=== PATIENT | male | born 1980 | race African-American/Black ===

== ENCOUNTER 2017-09-01 15:50 | Inpatient (IN) | payer OTHER ==
[2017-09-01] MEDS: IV NORMAL SALINE 1000ML BAG 1,000 ML IV ×6 (16:08→17:47)
[2017-09-01 16:22] LABS: ADD MAN DIFF? NO
[2017-09-01 16:24] LABS: BASO # 0.1 x10^3/uL (0.0-0.2); BASO % 1 % (0-3); EOS % 0 % (0-3); HEMATOCRIT 43.8 % (39.0-53.0); LYMPH # 0.7 x10^3/uL (1.0-4.8); LYMPH % 7 % (24-48); MEAN CORPUSCULAR HEMOGLOBIN 29 pg (25-35); MEAN CORPUSCULAR HGB CONC 32 g/dL (31-37); MEAN CORPUSCULAR VOLUME 92 fL (79-100); MONO # 1.2 x10^3/uL (0.0-1.1); MONO % 12 % (0-9); NEUT # 7.8 x10^3uL (1.8-7.7); NEUT % 80 % (31-73); PLATELET COUNT 257 x10^3/uL (140-400); RED BLOOD COUNT 4.77 x10^6/uL (4.30-5.70); RED CELL DISTRIBUTION WIDTH 13.3 % (11.5-14.5); WHITE BLOOD COUNT 9.8 x10^3/uL (4.0-11.0)
[2017-09-01] MEDS: 0.9 % SODIUM CHLORIDE 10 ML DISP.SYRIN. IV ×2 (16:33)
[2017-09-01 16:36] LABS: BILIRUBIN,URINE NEGATIVE (NEG); CLARITY,URINE CLEAR; COLOR,URINE YELLOW; GLUCOSE,URINE >=1000 mg/dL (NEG); NITRITE,URINE NEGATIVE (NEG); PROTEIN,URINE NEGATIVE (NEG-TRACE); UROBILINOGEN,URINE 0.2 mg/dL (0.2 mg/dL)
[2017-09-01 16:37] LABS: BACTERIA,URINE 0 /HPF (0-FEW); RBC,URINE 0 /HPF (0-2); WBC,URINE OCC /HPF (0-4)
[2017-09-01 16:47] LABS: ALBUMIN 3.2 g/dL (3.4-5.0); ALK PHOS 78 U/L (46-116); ALT (SGPT) 44 U/L (16-63); ANION GAP 20 (6-14); AST (SGOT) 11 U/L (15-37); BLOOD UREA NITROGEN 90 mg/dL (8-26); CALCIUM 8.5 mg/dL (8.5-10.1); CARBON DIOXIDE 18 mmol/L (21-32); CHLORIDE 76 mmol/L (98-107); CREATININE 6.3 mg/dL (0.7-1.3); DIRECT BILIRUBIN 0.3 mg/dL (0.0-0.2); GFR 12.2; LIPASE 595 U/L (73-393); MAGNESIUM 3.1 mg/dL (1.8-2.4); TOTAL BILIRUBIN 0.9 mg/dL (0.2-1.0); TOTAL PROTEIN 6.5 g/dL (6.4-8.2)
[2017-09-01 16:49] LABS: TROPONINI < 0.017 ng/mL (0.000-0.055)
[2017-09-01 16:49] LABS: GLUCOSE 1291 mg/dL (70-99); POTASSIUM 7.9 mmol/L (3.5-5.1); SODIUM 114 mmol/L (136-145)
[2017-09-01 16:54] LABS: CKMB INDEX 0.5 % (0-4); CKMB MASS 1.7 ng/mL (0.0-3.6); CREATINE KINASE 327 U/L (39-308)
[2017-09-01 16:54] LABS: NT-PRO BNP 38 pg/mL (0-124)
[2017-09-01 16:58] LABS: THYROID STIM HORMONE (TSH) 0.705 uIU/mL (0.358-3.74)
[2017-09-01] MEDS ORDERED: HYDROcodone/APAP 5/325MG 1 TAB TABLET PO ×2 (17:00)
[2017-09-01] MEDS ORDERED: ONDANSETRON PF 4 MG/2 ML VIAL. IV ×4 (17:00)
[2017-09-01] MEDS ORDERED: diphenhydrAMINE HCL 25 MG CAPSULE PO ×2 (17:00)
[2017-09-01] MEDS ORDERED: CALCIUM GLUCONATE 100 MG/ML VIAL for DOSE IN MG. IV (17:00)
[2017-09-01] MEDS ORDERED: MORPHINE SULFATE 2 MG/ML DISP.SYRIN. IV ×2 (17:00)
[2017-09-01 17:09] LABS: ACETONE SM POS (NEG)
[2017-09-01] MEDS: SODIUM BICARB ADULT 8.4% 50 MEQ/50 ML DISP.SYRIN. IV ×2 (17:11)
[2017-09-01] MEDS: SODIUM POLYSTYRENE SULFONATE 15 GM/60 ML ORAL.SUSP. PO ×2 (17:15)
[2017-09-01] MEDS: INSULIN,REGULAR 150 UNIT DRIP 150 ML IV ×2 (17:15)
[2017-09-01] MEDS: CALCIUM GLUCONATE 1,000 MG/10 ML VIAL. IV ×2 (17:17)
[2017-09-01 18:03] LABS: LACTIC ACID 4.4 mmol/L (0.4-2.0)
[2017-09-01] MEDS ORDERED: IV NORMAL SALINE 1000ML BAG 1,000 ML IV ×4 (19:00)
[2017-09-01] MEDS ORDERED: IV DEXTROSE 5 %-0.45 % NACL 1,000 ML IV ×2 (19:00)
[2017-09-01 19:15] LABS: ANION GAP 16 (6-14); BLOOD UREA NITROGEN 87 mg/dL (8-26); CALCIUM 8.6 mg/dL (8.5-10.1); CARBON DIOXIDE 21 mmol/L (21-32); CHLORIDE 88 mmol/L (98-107); CREATININE 5.9 mg/dL (0.7-1.3); GFR 13.2; POTASSIUM 5.9 mmol/L (3.5-5.1); SODIUM 125 mmol/L (136-145)
[2017-09-01 19:17] LABS: GLUCOSE 1015 mg/dL (70-99)
[2017-09-01 21:28] LABS: ANION GAP 14 (6-14); BLOOD UREA NITROGEN 85 mg/dL (8-26); CALCIUM 8.8 mg/dL (8.5-10.1); CARBON DIOXIDE 24 mmol/L (21-32); CHLORIDE 91 mmol/L (98-107); CREATININE 5.9 mg/dL (0.7-1.3); GFR 13.2; MAGNESIUM 3.4 mg/dL (1.8-2.4); PHOSPHORUS 6.3 mg/dL (2.6-4.7); POTASSIUM 4.7 mmol/L (3.5-5.1); SODIUM 129 mmol/L (136-145)
[2017-09-01 21:32] LABS: GLUCOSE 843 mg/dL (70-99)
[2017-09-01 21:36] LABS: LACTIC ACID 3.2 mmol/L (0.4-2.0)
[2017-09-01] MEDS ORDERED: POTASSIUM CHLORIDE 20MEQ 50 ML IV ×2 (21:45)
[2017-09-01] MEDS: POTASSIUM CHLORIDE 10 MEQ in IV NORMAL SALINE 100ML 100 ML IV (22:20)
[2017-09-01 22:48] LABS: POC GLUCOSE 507 mg/dL (70-99)
[2017-09-02 00:04] LABS: GLUCOSE 493 mg/dL (70-99)
[2017-09-02] MEDS: POTASSIUM CHLORIDE 10 MEQ in IV NORMAL SALINE 100ML 100 ML IV (00:43)
[2017-09-02] MEDS: IV NORMAL SALINE 1000ML BAG 1,000 ML IV ×6 (00:45→19:40)
[2017-09-02 01:04] LABS: POC GLUCOSE 408 mg/dL (70-99)
[2017-09-02 01:14] LABS: HEMOGLOBIN A1C 13.2 % (4.8-5.6)
[2017-09-02] MEDS: NOREPINEPHRIN PREMIX 250 ML IV ×2 (01:52)
[2017-09-02 02:05] LABS: ANION GAP 14 (6-14); BLOOD UREA NITROGEN 82 mg/dL (8-26); CALCIUM 8.6 mg/dL (8.5-10.1); CARBON DIOXIDE 24 mmol/L (21-32); CHLORIDE 96 mmol/L (98-107); CREATININE 5.3 mg/dL (0.7-1.3); GFR 14.9; GLUCOSE 392 mg/dL (70-99); MAGNESIUM 2.9 mg/dL (1.8-2.4); PHOSPHORUS 6.6 mg/dL (2.6-4.7); POTASSIUM 4.7 mmol/L (3.5-5.1); SODIUM 134 mmol/L (136-145)
[2017-09-02] MEDS: INSULIN REGULAR VIAL 150 UNIT in 0.9 % SODIUM CHLORIDE 150ML 150 ML IV (02:31)
[2017-09-02 03:12] LABS: POC GLUCOSE 331 mg/dL (70-99)
[2017-09-02 03:12] LABS: POC GLUCOSE 348 mg/dL (70-99)
[2017-09-02 04:01] LABS: POC GLUCOSE 302 mg/dL (70-99)
[2017-09-02] MEDS: IV DEXTROSE 5% - 0.9 % NACL 1,000 ML IV ×2 (04:50)
[2017-09-02 04:53] LABS: POC GLUCOSE 241 mg/dL (70-99)
[2017-09-02 06:29] LABS: POC GLUCOSE 245 mg/dL (70-99)
[2017-09-02 07:41] LABS: ANION GAP 8 (6-14); BLOOD UREA NITROGEN 75 mg/dL (8-26); CALCIUM 8.1 mg/dL (8.5-10.1); CARBON DIOXIDE 28 mmol/L (21-32); CHLORIDE 100 mmol/L (98-107); CREATININE 4.2 mg/dL (0.7-1.3); GFR 19.5; GLUCOSE 289 mg/dL (70-99); MAGNESIUM 2.6 mg/dL (1.8-2.4); PHOSPHORUS 5.2 mg/dL (2.6-4.7); POTASSIUM 4.2 mmol/L (3.5-5.1); SODIUM 136 mmol/L (136-145)
[2017-09-02 08:38] LABS: POC GLUCOSE 247 mg/dL (70-99)
[2017-09-02] MEDS ORDERED: DEXTROSE 50% 25 GM / 50ML DISP.SYRIN. IV ×6 (09:45→10:00)
[2017-09-02] MEDS: INSULIN ASPART 300 UNITS/3 ML INSULN.PEN SQ ×10 (11:01→19:54)
[2017-09-02 11:12] LABS: POC GLUCOSE 168 mg/dL (70-99)
[2017-09-02] MEDS ORDERED: MORPHINE SULFATE 4 MG/ML DISP.SYRIN. IV ×2 (14:24)
[2017-09-02 14:52] LABS: POC GLUCOSE 209 mg/dL (70-99)
[2017-09-02] MEDS: GLIMEPIRIDE 2 MG TABLET. PO ×2 (18:24)
[2017-09-02 18:28] LABS: POC GLUCOSE 319 mg/dL (70-99)
[2017-09-02 19:47] LABS: POC GLUCOSE 332 mg/dL (70-99)
[2017-09-02] MEDS: ACETAMINOPHEN 500 MG TABLET PO ×2 (23:07)
[2017-09-03] MEDS: IV NORMAL SALINE 1000ML BAG 1,000 ML IV ×6 (03:22→19:46)
[2017-09-03 07:54] LABS: POC GLUCOSE 293 mg/dL (70-99)
[2017-09-03 08:01] LABS: ADD MAN DIFF? NO
[2017-09-03] MEDS: INSULIN ASPART 300 UNITS/3 ML INSULN.PEN SQ ×14 (08:02→21:00)
[2017-09-03 08:12] LABS: BASO % 1 % (0-3); EOS # 0.1 x10^3/uL (0.0-0.7); EOS % 2 % (0-3); HEMATOCRIT 35.7 % (39.0-53.0); HEMOGLOBIN 11.9 g/dL (13.0-17.5); LYMPH # 1.3 x10^3/uL (1.0-4.8); LYMPH % 25 % (24-48); MEAN CORPUSCULAR HEMOGLOBIN 29 pg (25-35); MEAN CORPUSCULAR HGB CONC 34 g/dL (31-37); MEAN CORPUSCULAR VOLUME 88 fL (79-100); MONO # 0.8 x10^3/uL (0.0-1.1); MONO % 15 % (0-9); NEUT # 3.1 x10^3uL (1.8-7.7); NEUT % 59 % (31-73); PLATELET COUNT 176 x10^3/uL (140-400); RED BLOOD COUNT 4.07 x10^6/uL (4.30-5.70); RED CELL DISTRIBUTION WIDTH 13.1 % (11.5-14.5); WHITE BLOOD COUNT 5.4 x10^3/uL (4.0-11.0)
[2017-09-03 08:23] LABS: ANION GAP 8 (6-14); BLOOD UREA NITROGEN 42 mg/dL (8-26); CALCIUM 8.2 mg/dL (8.5-10.1); CARBON DIOXIDE 26 mmol/L (21-32); CHLORIDE 100 mmol/L (98-107); CREATININE 2.2 mg/dL (0.7-1.3); GFR 41.2; GLUCOSE 325 mg/dL (70-99); POTASSIUM 4.4 mmol/L (3.5-5.1); SODIUM 134 mmol/L (136-145)
[2017-09-03] MEDS: GLIMEPIRIDE 2 MG TABLET. PO ×2 (08:57)
[2017-09-03] MEDS: SALIVA STIMULANT AGENT 44ML SPRAY BOTTLE. PO ×2 (11:36)
[2017-09-03] MEDS: INSULIN DETEMIR 300 UNITS/3 ML INSULN.PEN. SQ ×2 (11:40)
[2017-09-03 11:50] LABS: POC GLUCOSE 323 mg/dL (70-99)
[2017-09-03 16:15] LABS: POC GLUCOSE 300 mg/dL (70-99)
[2017-09-03 21:27] LABS: POC GLUCOSE 189 mg/dL (70-99)
[2017-09-04] MEDS: IV NORMAL SALINE 1000ML BAG 1,000 ML IV ×6 (03:45→18:58)
[2017-09-04] MEDS: ACETAMINOPHEN 500 MG TABLET PO ×2 (03:48)
[2017-09-04 05:10] LABS: ADD MAN DIFF? NO
[2017-09-04 05:20] LABS: BASO % 1 % (0-3); EOS # 0.1 x10^3/uL (0.0-0.7); EOS % 2 % (0-3); HEMATOCRIT 33.1 % (39.0-53.0); HEMOGLOBIN 11.2 g/dL (13.0-17.5); LYMPH # 1.9 x10^3/uL (1.0-4.8); LYMPH % 40 % (24-48); MEAN CORPUSCULAR HEMOGLOBIN 30 pg (25-35); MEAN CORPUSCULAR HGB CONC 34 g/dL (31-37); MEAN CORPUSCULAR VOLUME 88 fL (79-100); MONO # 0.7 x10^3/uL (0.0-1.1); MONO % 14 % (0-9); NEUT % 43 % (31-73); PLATELET COUNT 157 x10^3/uL (140-400); RED BLOOD COUNT 3.78 x10^6/uL (4.30-5.70); RED CELL DISTRIBUTION WIDTH 13.1 % (11.5-14.5); WHITE BLOOD COUNT 4.7 x10^3/uL (4.0-11.0)
[2017-09-04 05:41] LABS: ANION GAP 8 (6-14); BLOOD UREA NITROGEN 24 mg/dL (8-26); CALCIUM 8.2 mg/dL (8.5-10.1); CARBON DIOXIDE 27 mmol/L (21-32); CHLORIDE 102 mmol/L (98-107); CREATININE 1.7 mg/dL (0.7-1.3); GFR 55.5; GLUCOSE 194 mg/dL (70-99); POTASSIUM 3.8 mmol/L (3.5-5.1); SODIUM 137 mmol/L (136-145)
[2017-09-04 07:36] LABS: POC GLUCOSE 212 mg/dL (70-99)
[2017-09-04] MEDS: SALIVA STIMULANT AGENT 44ML SPRAY BOTTLE. PO ×2 (07:42)
[2017-09-04] MEDS: INSULIN ASPART 300 UNITS/3 ML INSULN.PEN SQ ×14 (08:05→21:03)
[2017-09-04] MEDS: GLIMEPIRIDE 2 MG TABLET. PO ×2 (08:38)
[2017-09-04] MEDS: INSULIN DETEMIR 300 UNITS/3 ML INSULN.PEN. SQ ×2 (08:42)
[2017-09-04] MEDS: SORBITOL 70% 30 ML SOLUTION. PO ×2 (09:16)
[2017-09-04 11:20] LABS: POC GLUCOSE 216 mg/dL (70-99)
[2017-09-04 16:36] LABS: POC GLUCOSE 172 mg/dL (70-99)
[2017-09-04 20:19] LABS: POC GLUCOSE 224 mg/dL (70-99)
[2017-09-05 04:55] LABS: ADD MAN DIFF? NO
[2017-09-05 05:15] LABS: BASO % 1 % (0-3); EOS # 0.1 x10^3/uL (0.0-0.7); EOS % 3 % (0-3); LYMPH # 1.4 x10^3/uL (1.0-4.8); LYMPH % 33 % (24-48); MEAN CORPUSCULAR HEMOGLOBIN 29 pg (25-35); MEAN CORPUSCULAR HGB CONC 33 g/dL (31-37); MEAN CORPUSCULAR VOLUME 88 fL (79-100); MONO # 0.7 x10^3/uL (0.0-1.1); MONO % 15 % (0-9); NEUT # 2.1 x10^3uL (1.8-7.7); NEUT % 49 % (31-73); PLATELET COUNT 146 x10^3/uL (140-400); RED BLOOD COUNT 3.74 x10^6/uL (4.30-5.70); RED CELL DISTRIBUTION WIDTH 12.8 % (11.5-14.5); WHITE BLOOD COUNT 4.4 x10^3/uL (4.0-11.0)
[2017-09-05 05:43] LABS: ANION GAP 8 (6-14); BLOOD UREA NITROGEN 16 mg/dL (8-26); CALCIUM 8.5 mg/dL (8.5-10.1); CARBON DIOXIDE 27 mmol/L (21-32); CHLORIDE 101 mmol/L (98-107); CREATININE 1.4 mg/dL (0.7-1.3); GFR 69.4; GLUCOSE 182 mg/dL (70-99); POTASSIUM 3.7 mmol/L (3.5-5.1); SODIUM 136 mmol/L (136-145)
[2017-09-05 08:08] LABS: POC GLUCOSE 211 mg/dL (70-99)
[2017-09-05] MEDS: GLIMEPIRIDE 2 MG TABLET. PO ×2 (08:22)
[2017-09-05] MEDS: INSULIN ASPART 300 UNITS/3 ML INSULN.PEN SQ ×8 (08:23→12:06)
[2017-09-05] MEDS: INSULIN DETEMIR 300 UNITS/3 ML INSULN.PEN. SQ ×2 (08:24)
[2017-09-05 11:55] LABS: POC GLUCOSE 194 mg/dL (70-99)
[2017-09-06] MEDS ORDERED: INSULIN DETEMIR 300 UNITS/3 ML INSULN.PEN. SQ ×2 (09:00)
== END 2017-09-05 15:10 | disposition home or self-care (01) | DRG 637 ==
LOC: 5 NORTH 09-02 19:15 → ER 15:50 → 1 WEST ICU 17:00
DX: E11.01 Type 2 diabetes mellitus with hyperosmolarity with coma (principal); N17.0 Acute kidney failure with tubular necrosis; E87.2 Acidosis; I95.9 Hypotension, unspecified; E11.22 Type 2 diabetes mellitus with diabetic chronic kidney disease; E66.01 Morbid (severe) obesity due to excess calories; N18.3 Chronic kidney disease, stage 3 (moderate); E87.5 Hyperkalemia; Z68.43 Body mass index [BMI] 50.0-59.9, adult; I12.9 Hypertensive chronic kidney disease with stage 1 through stage 4 chronic kidney disease, or unspecified chronic kidney disease; E78.00 Pure hypercholesterolemia, unspecified; E78.5 Hyperlipidemia, unspecified; E86.0 Dehydration; J45.909 Unspecified asthma, uncomplicated; Z82.49 Family history of ischemic heart disease and other diseases of the circulatory system; Z83.3 Family history of diabetes mellitus; Z87.891 Personal history of nicotine dependence
CPT/HCPCS: 36415; 36600; 71045; 80048; 80076; 81001; 82010; 82553; 82947; 82962; 83036; 83605; 83690; 83735; 83880; 84100; 84443; 84484; 85025; 87040; 93005; 96361; 96365; 96374; 96375; 99291; 99291-25; J0610; J1815; J7030; J7042